=== PATIENT | female | born 1955 ===

== ENCOUNTER → 2017-12-25 | Outpatient (CLI) | payer OTHER ==
[~2017-12-25] MED LIST: CLONAZEPAM1 GM; GRALISE600 MG; NEXIUM40 M1; ZYRTEC10 M3; [UNRECOGNIZED DRUG - OTHER]
== END | disposition home or self-care (01) ==
LOC: LAB 07:29
DX: D51.0 Vitamin B12 deficiency anemia due to intrinsic factor deficiency (principal); D51.1 Vitamin B12 deficiency anemia due to selective vitamin B12 malabsorption with proteinuria; D69.3 Immune thrombocytopenic purpura; D72.818 Other decreased white blood cell count; D51.3 Other dietary vitamin B12 deficiency anemia; I34.1 Nonrheumatic mitral (valve) prolapse; J45.20 Mild intermittent asthma, uncomplicated; M32.8 Other forms of systemic lupus erythematosus; M46.1 Sacroiliitis, not elsewhere classified; J45.998 Other asthma; Z86.010 Personal history of colon polyps; H40.89 Other specified glaucoma; K57.30 Diverticulosis of large intestine without perforation or abscess without bleeding; E04.8 Other specified nontoxic goiter; M33.22 Polymyositis with myopathy; G62.89 Other specified polyneuropathies; D50.8 Other iron deficiency anemias; D51.8 Other vitamin B12 deficiency anemias; I10 Essential (primary) hypertension; E03.8 Other specified hypothyroidism

== ENCOUNTER → 2018-01-29 08:54 | Outpatient (CLI) | payer OTHER | END | disposition home or self-care (01) | LOC: LAB 08:54 | DX: N18.9 Chronic kidney disease, unspecified (principal) ==

== ENCOUNTER → 2018-07-26 06:41 | Outpatient (CLI) | payer OTHER | END | disposition home or self-care (01) | LOC: LAB 06:41 | DX: D69.59 Other secondary thrombocytopenia (principal); D51.3 Other dietary vitamin B12 deficiency anemia; M32.8 Other forms of systemic lupus erythematosus; M46.1 Sacroiliitis, not elsewhere classified; Z86.010 Personal history of colon polyps; H40.89 Other specified glaucoma; K57.30 Diverticulosis of large intestine without perforation or abscess without bleeding; E04.8 Other specified nontoxic goiter; M33.22 Polymyositis with myopathy; G62.89 Other specified polyneuropathies; D51.0 Vitamin B12 deficiency anemia due to intrinsic factor deficiency; J45.20 Mild intermittent asthma, uncomplicated; D51.1 Vitamin B12 deficiency anemia due to selective vitamin B12 malabsorption with proteinuria; J45.909 Unspecified asthma, uncomplicated; D72.818 Other decreased white blood cell count; K76.0 Fatty (change of) liver, not elsewhere classified; R16.0 Hepatomegaly, not elsewhere classified; R10.13 Epigastric pain; R73.03 Prediabetes; M06.89 Other specified rheumatoid arthritis, multiple sites ==

== ENCOUNTER 2019-03-29 12:14 | Outpatient (CLI) | payer OTHER | END 2019-03-29 15:30 | disposition home or self-care (01) | LOC: LAB 12:14 | DX: E03.8 Other specified hypothyroidism (principal); E06.3 Autoimmune thyroiditis ==

== ENCOUNTER 2020-05-15 11:22 | Outpatient (CLI) | payer OTHER | END 2020-05-15 11:36 | disposition home or self-care (01) | LOC: LAB 11:22 | PROVIDERS: ATTEND Internal Medicine Hematology & Oncology | DX: D50.8 Other iron deficiency anemias (principal); R79.89 Other specified abnormal findings of blood chemistry; I10 Essential (primary) hypertension; R74.02 Elevation of levels of lactic acid dehydrogenase [LDH]; K76.89 Other specified diseases of liver; E11.9 Type 2 diabetes mellitus without complications; R70.0 Elevated erythrocyte sedimentation rate; E55.9 Vitamin D deficiency, unspecified; D68.8 Other specified coagulation defects; D69.1 Qualitative platelet defects; D51.0 Vitamin B12 deficiency anemia due to intrinsic factor deficiency; D51.1 Vitamin B12 deficiency anemia due to selective vitamin B12 malabsorption with proteinuria; D69.3 Immune thrombocytopenic purpura; D72.818 Other decreased white blood cell count; D51.3 Other dietary vitamin B12 deficiency anemia; I34.1 Nonrheumatic mitral (valve) prolapse; J45.998 Other asthma; M32.8 Other forms of systemic lupus erythematosus; M46.1 Sacroiliitis, not elsewhere classified; Z86.010 Personal history of colon polyps; H40.89 Other specified glaucoma; K57.30 Diverticulosis of large intestine without perforation or abscess without bleeding; E04.8 Other specified nontoxic goiter; M33.22 Polymyositis with myopathy; G62.89 Other specified polyneuropathies; K82.A1 Gangrene of gallbladder in cholecystitis ==

== ENCOUNTER 2021-06-05 14:42 | Outpatient (CLI) | payer OTHER | END 2021-06-05 14:52 | disposition home or self-care (01) | LOC: LAB 14:42 | PROVIDERS: ATTEND Internal Medicine Hematology & Oncology | DX: D50.8 Other iron deficiency anemias (principal); R79.9 Abnormal finding of blood chemistry, unspecified; I10 Essential (primary) hypertension; R74.02 Elevation of levels of lactic acid dehydrogenase [LDH]; K76.89 Other specified diseases of liver; R70.0 Elevated erythrocyte sedimentation rate; E55.9 Vitamin D deficiency, unspecified; D68.8 Other specified coagulation defects; D69.1 Qualitative platelet defects; D51.1 Vitamin B12 deficiency anemia due to selective vitamin B12 malabsorption with proteinuria; E03.8 Other specified hypothyroidism; E06.3 Autoimmune thyroiditis; D69.59 Other secondary thrombocytopenia; D69.3 Immune thrombocytopenic purpura; I34.1 Nonrheumatic mitral (valve) prolapse; M32.9 Systemic lupus erythematosus, unspecified; M46.1 Sacroiliitis, not elsewhere classified; Z86.010 Personal history of colon polyps; H40.9 Unspecified glaucoma; K57.30 Diverticulosis of large intestine without perforation or abscess without bleeding; E04.9 Nontoxic goiter, unspecified; M33.22 Polymyositis with myopathy; G62.9 Polyneuropathy, unspecified; K82.9 Disease of gallbladder, unspecified; D51.0 Vitamin B12 deficiency anemia due to intrinsic factor deficiency; D72.818 Other decreased white blood cell count; J45.20 Mild intermittent asthma, uncomplicated ==